=== PATIENT | female | born 1990 | race Caucasian/White ===

== ENCOUNTER 2018-03-07 17:06 | Emergency (ER) | payer OTHER ==
[2018-03-07 17:13] VITALS: BP 145/67; BMI 19.2
--- NOTE | 2018-03-07 17:30 | PDOC ---
History of Present Illness - General Chief Complaint: Pain Stated Complaint: PELVIC PAIN - History of Present Illness Initial Comments: The patient is a 27F w/ no reported PMH who presents for evaluation of 2d of constant, cramping, non-radiating, pelvic pain. Patient reports chronic history of similar pain but it is worse than usual this time. Denies vaginal bleeding, change in vaginal discharge quality, dysuria, hematuria, N/V/C/D. Denies hx of or intra-vaginal procedures. Denies history of intra-abdominal surgery. Denies OCPs or any other medication use. She has not taken anything for the pain. Reports undergoing a US 3m ago which was significant for a R cyst but she does not know more than that and does not have the report. 03/07/18 17:54 Past History - Past Medical History Allergies/Adverse Reactions: Allergies Allergy/AdvReac Type Severity Reaction Status Date / Time No Known Allergies Allergy Verified 03/07/18 17:13 Home Medications: Ambulatory Orders NK [No Known Home Medication] 03/07/18 COPD: No - Suicide/Smoking/Psychosocial Hx Smoking History: Never smoked Review of Systems - Review of Systems Able to Perform ROS?: Yes Comments:: GENERAL/CONSTITUTIONAL: No fever or chills. No weakness HEAD, EYES, EARS, NOSE AND THROAT: No change in vision. No ear pain or discharge. No sore throat CARDIOVASCULAR: No chest pain or shortness of breath RESPIRATORY: Denies cough, hemoptysis_ GASTROINTESTINAL: No nausea, vomiting, diarrhea or constipation GENITOURINARY: No dysuria, frequency, or change in urination MUSCULOSKELETAL: +b/l inguinal msk pain s/p yoga Thursday. No joint or muscle swelling or pain. No neck or back pain SKIN: No rash NEUROLOGIC: No headache, vertigo, loss of consciousness, or change in strength/ sensation ENDOCRINE: No increased thirst. No abnormal weight change HEMATOLOGIC/LYMPHATIC: No anemia, easy bleeding, or history of blood clots ALLERGIC/IMMUNOLOGIC: No hives or skin allergy 03/07/18 17:58 Is the patient limited Serbian proficient: No *Physical Exam - Vital Signs Last Vital Signs Temp Pulse Resp BP Pulse Ox 98.7 F 108 H 18 145/67 99 03/07/18 17:09 03/07/18 17:09 03/07/18 17:09 03/07/18 17:09 03/07/18 17:09 - Physical Exam Comments: GENERAL: Awake, alert, and fully oriented, in no acute distress HEAD: No signs of trauma, normocephalic, atraumatic EYES: PERRLA, EOMI, sclera anicteric, conjunctiva clear ENT: Hearing grossly normal, nares patent, oropharynx clear without exudates. Moist mucosa LUNGS: No distress, speaks full sentences, clear to auscultation bilaterally HEART: Regular rate and rhythm, normal S1 and S2, no murmurs appreciated, peripheral pulses normal and equal bilaterally ABDOMEN: Soft, mild lower abdominal TTP w/o rebound or guarding; non-distended; normoactive bowel sounds EXTREMITIES : Normal inspection, Normal range of motion, no edema. No clubbing or cyanosis NEUROLOGICAL: Cranial nerves II through XII grossly intact. Normal speech, normal gait, no focal sensorimotor deficits SKIN: Warm, Dry, normal turgor 03/07/18 17:58 Moderate Sedation - Procedure Monitoring Vital Signs: Procedure Monitoring Vital Signs Temperature 98.7 F 03/07/18 17:09 Pulse Rate 108 H 03/07/18 17:09 Respiratory Rate 18 03/07/18 17:09 Blood Pressure 145/67 03/07/18 17:09 O2 Sat by Pulse Oximetry (%) 99 03/07/18 17:09 Medical Decision Making - Medical Decision Making The patient is a 27F w/ no reported PMH who presents for acute on chronic pelvic pain for 2days ED Course Ibuprofen 800mg PO once Transvaginal US for evaluation of pelvic pain 03/07/18 17:59 Upreg neg 03/07/18 18:39 Transvaginal US: no fibroids, small complex ovarian cyst seen consistent with follicular cyst. no TOA. No free fluid Results discussed w/ patient and copy of read provided Plan for D/C w/ OBGYN f/u Discharge instructions and return precautions given Plan discussed with patient who is in agreement and verbalized understanding Dispo: Home 03/07/18 20:55 *DC/Admit/Observation/Transfer Diagnosis at time of Disposition: Pelvic pain - Discharge Dispostion Disposition: HOME Condition at time of disposition: Stable Decision to Admit order: No - Referrals Referrals: Lee Luna MD [Primary Care Provider] - Elinor Zarco MD [Staff Physician] - - Patient Instructions Printed Discharge Instructions: DI for Pelvic Pain - Post Discharge Activity Forms/Work/School Notes: Back to Work
[2018-03-07] MEDS ORDERED: IBUPROFEN 400 MG TABLET (FP) PO ONE ×2 (17:42→17:44)
--- NOTE | 2018-03-07 17:50 | PDOC ---
Attending Attestation - HPI HPI: This patient is a 27 year old female with no significant PMHx, who presents with 2 days of increased diffuse pelvic pain. She states that the pelvic pain has been intermittent for a year but has progressively worsened for the past 2 days. Patient describes the pain as cramp-like, radiates to b/l inguinal area. She states that she saw a cotton opener 3 months ago and had a right-sided cyst but was unable to elaborate further. LMP 02/16. Denies any previous pregnancies, procedures, or medications. Denies vaginal bleeding, change in vaginal discharge quality, dysuria, hematuria, N/V/C/D. <Marlene Torres - Last Filed: 03/07/18 18:19> - Resident Resident Name: Mumtaz Peraza - ED Attending Attestation I have performed the following: I have examined & evaluated the patient, The case was reviewed & discussed with the resident, I agree w/resident's findings & plan, Exceptions are as noted - HPI HPI: 03/07/18 17:46 27 yo female p/w 2 days of diffuse pelvic pain and this has been chronic but it worsened the past 2 days no fever, no dysuria,no fever,no vomiting,no hematuria LMP 02/16/18 colposcopy for questionable PAP smear that was biopsy negative - Physicial Exam PE: 03/07/18 21:04 slender 27 yo female p/w pelvic pain for 1 year that worsened 2 day ago head ncat neck supple lungs cta b/l cvs [id number] abd soft,no rebound and no guarding ext no deformities ,good motor strength neuro axox3,ambulatory pelvic done by Dr Sunshine skin warm and dry psych appropriate - Medical Decision Making 03/07/18 21:07 this pt has had chronic pelvic pain that is exacerbated by her menses -pelvic US : complex ovarian cyst ,hemorrhagic cyst, no torsion negative preg test plan follow up with Dr Zarco <Luana Espinoza - Last Filed: 03/07/18 21:20>
[2018-03-07 21:10] VITALS: PULSE 88; TEMP 98.2
== END 2018-03-07 21:10 | disposition home or self-care (01) ==
LOC: JER 17:06
DX: R10.2 Pelvic and perineal pain (principal)
CPT/HCPCS: 76830-TC; 84703; 99282-25

== ENCOUNTER 2019-05-16 02:58 | Emergency (ER) | payer OTHER ==
[2019-05-16 03:00] VITALS: BMI 20.2
[2019-05-16] MEDS ORDERED: SODIUM CHLORIDE 0.9% 500 ML INFUS.BAG IV ONE (03:34)
--- NOTE | 2019-05-16 03:34 | PDOC ---
Attending Attestation - Resident Resident Name: Marixa Barahona - ED Attending Attestation I have performed the following: I have examined & evaluated the patient, The case was reviewed & discussed with the resident, I agree w/resident's findings & plan - HPI HPI: 05/16/19 03:33 Pt felt weak and low BP; weak when she got up from bed. - Physicial Exam PE: 05/16/19 03:35 Normal exam Pt is tachycardic; BP is normal low Pt is comfortable O2sat RA 100% - Medical Decision Making 05/16/19 05:23 Pt's labs are normal; she feels better after 1 L of saline 05/16/19 05:31 Pt has white coat syncdrome; as I speak to her , she goes from 105bpm to 140bpm. She is anxious. 05/16/19 05:34 TSH and rapid strep pending. 05/20/19 20:44 Pt signed out to the day team. Likely anxiety/panic. Heart Score/ECG Review - ECG Intrepretation Rhythm: Regular Rhythm - [place]: Normal - P and LA Delta Wave(s) Present: No WPW: No - QRS Poor R Wave Progression: No Q Wave Present: No - ST and T Early Repolarization: No Non Specific ST-T Wave changes: No Flattened T Waves: No Prolonged Q-T Interval: No - ECG Impressions Normal ECG: Yes Non-specific ST Elevation: No Ischemic Changes: No Bradycardia: No Tachycardia: Sinus Torsades loren Pointes: No WPW: No
[2019-05-16] MEDS ORDERED: LORazepam 2 MG TABLET PO ONE (03:36)
[2019-05-16] MEDS ORDERED: LORazepam 0.5 MG TABLET ONE (03:46)
--- NOTE | 2019-05-16 03:53 | PDOC ---
History of Present Illness - General Chief Complaint: Chest Pain Stated Complaint: ANXIETY ATTACK Time Seen by Provider: 05/16/19 03:05 - History of Present Illness Initial Comments: HPI: 28yo F with PMH of anxiety presenting with chest pain. Patient states she woke up while sleeping feeling anxious and felt like her "blood pressure was dropping." Currently feeling anxious. Has felt his way before but something felt different, prompting her to come to the ED. No hemoptysis, no recent surgical history, no recent immobilization, no hormone use, no history of DVT or PE. No fevers or chills. PCP: Dr. Luna ROS: Constitutional: no fever, no chills HEENT: no throat pain, no dysphagia Cardiovascular: +chest pain, +palpitations Respiratory: no cough, no shortness of breath Gastrointestinal: no abdominal pain, no nausea Genitourinary: no dysuria, no hematuria Musculoskeletal: no myalgia, no arthralgia Skin: no rash, no itching Neurologic: no headache, no weakness Psych: no agitation, +anxiety PE: General: Awake, alert, and fully oriented, in no acute distress Head: No signs of trauma Eyes: EOMI, sclera anicteric ENT: Moist mucus membranes Neck: Normal ROM, supple Lungs: Lungs clear, Normal breath sounds Cardio: Tachycardic, Regular rhythm, S1 and S2 present Abdomen: Soft, nontender. No guarding, no rebound, no masses Extremities: Normal range of motion, Distal pulses present SKIN: Warm, Dry, normal turgor Neurologic: Cranial nerves II through XII grossly intact. Normal speech ED Course/MDM: DDX including but not limited to ACS, PE, PNA, anemia, metabolic derangement Labs, EKG, CXR EKG: rate 10, QTc 455, sinus 05/16/19 04:54 CBC WBC 7.0 K/mm3 (4.0-10.0) 05/16/19 03:40 RBC 4.00 M/mm3 (3.60-5.2) 05/16/19 03:40 Hgb 13.0 GM/dL (10.7-15.3) 05/16/19 03:40 Hct 38.5 % (32.4-45.2) 05/16/19 03:40 MCV 96.1 fl (80-96) H 05/16/19 03:40 MCH 32.6 pg (25.7-33.7) 05/16/19 03:40 MCHC 33.9 g/dl (32.0-36.0) 05/16/19 03:40 RDW 13.0 % (11.6-15.6) 05/16/19 03:40 Plt Count 235 K/MM3 (134-434) 05/16/19 03:40 MPV 7.7 fl (7.5-11.1) 05/16/19 03:40 Absolute Neuts (auto) 4.3 K/mm3 (1.5-8.0) 05/16/19 03:40 Neutrophils % 61.2 % (42.8-82.8) 05/16/19 03:40 Lymphocytes % 29.3 % (8-40) 05/16/19 03:40 Monocytes % 8.5 % (3.8-10.2) 05/16/19 03:40 Eosinophils % 0.6 % (0-4.5) 05/16/19 03:40 Basophils % 0.4 % (0-2.0) 05/16/19 03:40 Nucleated RBC % 0 % (0-0) 05/16/19 03:40 No leukocytosis CMP Sodium 139 mmol/L (136-145) 05/16/19 03:40 Potassium 3.8 mmol/L (3.5-5.1) 05/16/19 03:40 Chloride 110 mmol/L (98-107) H 05/16/19 03:40 Carbon Dioxide 23 mmol/L (21-32) 05/16/19 03:40 Anion Gap 6 MMOL/L (8-16) L 05/16/19 03:40 BUN 14.3 mg/dL (7-18) 05/16/19 03:40 Creatinine 0.7 mg/dL (0.55-1.3) 05/16/19 03:40 Est GFR (CKD-EPI)AfAm 137.62 05/16/19 03:40 Est GFR (CKD-EPI)NonAf 118.74 05/16/19 03:40 Random Glucose 103 mg/dL (74-106) 05/16/19 03:40 Calcium 8.7 mg/dL (8.5-10.1) 05/16/19 03:40 Total Bilirubin 0.1 mg/dL (0.2-1) L 05/16/19 03:40 AST 11 U/L (15-37) L 05/16/19 03:40 ALT 43 U/L (13-61) 05/16/19 03:40 Alkaline Phosphatase 44 U/L (45-117) L 05/16/19 03:40 Troponin I < 0.02 ng/ml (0.00-0.05) 05/16/19 03:40 Total Protein 7.4 g/dl (6.4-8.2) 05/16/19 03:40 Albumin 4.0 g/dl (3.4-5.0) 05/16/19 03:40 TSH 2.22 uIU/ml (0.358-3.74) 05/16/19 03:40 Electrolytes unremarkable TSH normal Tpn undetectable Patient refused ativan as she does not want to take a controlled substance 05/16/19 04:58 I have a low suspicion for acute cardiac pathology as patient is with normal blood work, EKG, and CXR No PE risk factors except for tachycardia Psych referral Return precautions Stable for discharge 05/16/19 06:33 Past History - Past Medical History Allergies/Adverse Reactions: Allergies Allergy/AdvReac Type Severity Reaction Status Date / Time No Known Allergies Allergy Verified 05/16/19 03:00 Home Medications: Ambulatory Orders NK [No Known Home Medication] 03/07/18 COPD: No - Psycho Social/Smoking Cessation Hx Smoking History: Never smoked *Physical Exam - Vital Signs Last Vital Signs Temp Pulse Resp BP Pulse Ox 97.4 F L 136 H 20 119/81 100 05/16/19 02:59 05/16/19 02:59 05/16/19 02:59 05/16/19 02:59 05/16/19 02:59 ED Treatment Course - LABORATORY CBC & Chemistry Diagram: 05/16/19 03:40 05/16/19 03:40 - RADIOLOGY Radiology Studies Ordered: Category Date Time Status CHEST PA & LAT [RAD] Stat Radiology 05/16/19 03:12 Ordered - Medications Given in the ED: ED Medications Discontinued Medications Generic Name Dose Route Start Last Admin Trade Name Freq PRN Reason Stop Dose Admin Sodium Chloride 1,000 ml 05/16/19 03:34 05/16/19 03:53 Normal Saline - IV 05/16/19 03:35 1,000 ml ONCE ONE Administration Discharge - Discharge Information Problems reviewed: Yes Clinical Impression/Diagnosis: Panic attack Condition: Improved Disposition: HOME - Follow up/Referral Referrals: Lee Luna MD [Primary Care Provider] - Mary Cook MD [Staff Physician] - - Patient Discharge Instructions Patient Printed Discharge Instructions: Anxiety and Panic Attacks (Alternative Therapy), DI for Panic Disorder Additional Instructions: You came into the emergency department for chest pain. Labs, EKG, and Xray did not indicate acute pathology. We sent a test for strep. If it is positive, you will receive a phone call You can take [id number] tylenol or motrin for pain. Follow the instructions on the medication bottle. Follow-up with your primary care provider within 72 hours to discuss this ED visit and to further evaluate your symptoms. Call today or tomorrow morning and make an appointment. Your workup is not complete until you do so. Follow-up with the psychiatrist we have referred you to in order to discuss this ED visit and to further evaluate your symptoms. Your care is not complete until you do so. Call and make an appointment. Immediate medical attention is required if you develop: fainting, high fevers, persistent nausea, vomiting, or any new or concerning symptoms. If you think you are having an emergency, call for emergency medical services or present to the emergency department right away. - Post Discharge Activity Work/Back to School Note: Back to Work
[2019-05-16 04:07] LABS: BASO % 0.4 % (0-2.0); EOS % 0.6 % (0-4.5); HEMATOCRIT 38.5 % (32.4-45.2); LYMPH % 29.3 % (8-40); MCH 32.6 pg (25.7-33.7); MCHC 33.9 g/dl (32.0-36.0); MEAN CELL VOLUME 96.1 fl (80-96); MEAN PLT VOLUME 7.7 fl (7.5-11.1); MONO % 8.5 % (3.8-10.2); NEUT % 61.2 % (42.8-82.8); PLATELET COUNT 235 K/MM3 (134-434)
[2019-05-16 04:25] LABS: BILIRUBIN,TOTAL 0.1 mg/dL (0.2-1); BLOOD UREA NITROGEN 14.3 mg/dL (7-18); CALCIUM 8.7 mg/dL (8.5-10.1); CREATININE 0.7 mg/dL (0.55-1.3); POTASSIUM 3.8 mmol/L (3.5-5.1); TOT PROT 7.4 g/dl (6.4-8.2)
[2019-05-16 05:27] VITALS: BP 122/75; PULSE 117; TEMP 98.1
--- NOTE | 2019-05-16 08:59 | EKG ---
Test Reason : Blood Pressure : / mmHG Vent. Rate : 109 BPM Atrial Rate : 109 BPM P-R Int : 152 ms QRS Dur : 078 ms QT Int : 338 ms P-R-T Axes : 073 081 038 degrees QTc Int : 455 ms SINUS TACHYCARDIA POSSIBLE LEFT ATRIAL ENLARGEMENT BORDERLINE ECG NO PREVIOUS ECGS AVAILABLE Confirmed by Evan German ([id number]) on 05/16/2019 8:59:33 AM Referred By: Confirmed By:Evan German
== END 2019-05-16 05:29 | disposition home or self-care (01) ==
LOC: JER 02:58
DX: F41.0 Panic disorder [episodic paroxysmal anxiety] (principal)
CPT/HCPCS: 36415; 71046-TC-FY; 80053; 84443; 84484; 85025; 93005; 93010; 99283-25

== ENCOUNTER 2020-02-15 02:23 | Emergency (ER) | payer OTHER ==
[2020-02-15 02:48] VITALS: BP 126/74; PULSE 100; TEMP 98; BMI 21.2
[2020-02-15 03:42] LABS: BASO % 0.5 % (0-2.0); EOS % 0.9 % (0-4.5); HEMATOCRIT 39.4 % (32.4-45.2); HEMOGLOBIN 13.4 GM/dL (10.7-15.3); LYMPH % 34.9 % (8-40); MCH 32.6 pg (25.7-33.7); MCHC 33.9 g/dl (32.0-36.0); MEAN PLT VOLUME 7.8 fl (7.5-11.1); MONO % 8.8 % (3.8-10.2); NEUT % 54.9 % (42.8-82.8); PLATELET COUNT 254 K/MM3 (134-434); RBC 4.11 M/mm3 (3.60-5.2); RDW 13.1 % (11.6-15.6); WHITE BLOOD COUNT 7.3 K/mm3 (4.0-10.0)
[2020-02-15 04:14] LABS: CHLORIDE 109 mmol/L (98-107); POTASSIUM 3.6 mmol/L (3.5-5.1); SODIUM 139 mmol/L (136-145)
[2020-02-15 04:16] LABS: CALCIUM 8.7 mg/dL (8.5-10.1)
[2020-02-15 04:17] LABS: ANION GAP 6 MMOL/L (8-16); BLOOD UREA NITROGEN 12.8 mg/dL (7-18); CO2 24 mmol/L (21-32); GLUCOSE,RANDOM 87 mg/dL (74-106)
[2020-02-15 04:20] LABS: CREATININE 0.7 mg/dL (0.55-1.3); SGOT/AST 15 U/L (15-37); SGPT/ALT 31 U/L (13-61)
[2020-02-15 04:21] LABS: BILIRUBIN,TOTAL 0.3 mg/dL (0.2-1); TOT PROT 7.5 g/dl (6.4-8.2)
[2020-02-15 04:22] LABS: ALK PHOS 52 U/L (45-117)
== END 2020-02-15 04:35 | disposition home or self-care (01) ==
LOC: JER 02:23
DX: R07.89 Other chest pain (principal); F41.9 Anxiety disorder, unspecified
CPT/HCPCS: 36415; 80053; 82550; 84443; 84484; 84703; 85025; 85379; 93005; 93010; 99284-25

== ENCOUNTER 2021-03-09 20:27 | Emergency (ER) | payer OTHER ==
[2021-03-09 20:39] VITALS: BP 120/77; PULSE 103; TEMP 98.9; BMI 19.5
[2021-03-09] MEDS ORDERED: IBUPROFEN 600 MG TABLET (FP) PO ONE ×2 (22:08→22:10)
[2021-03-09] MEDS ORDERED: DEXAMETHASONE LIQUID 0.5 MG/5 ML PO ONE (22:10)
[2021-03-09] MEDS ORDERED: DEXAMETHASONE SOD PHOSPHATE 10 MG/1 ML VIAL ONE (22:10)
== END 2021-03-09 23:03 | disposition home or self-care (01) ==
LOC: JER 20:27
DX: R05.1 Acute cough (principal); J02.9 Acute pharyngitis, unspecified; Z11.52 Encounter for screening for COVID-19
CPT/HCPCS: 87651; 87804; 87807; 99283-25; C9803; U0003; U0005